=== PATIENT | female | born 1960 | race African-American/Black ===

== ENCOUNTER 2019-04-25 22:21 | Emergency (ER) | payer SELFPAY ==
[~2019-04-25] VITALS: Ht 160 cm; Wt 59.0 kg
[2019-04-26 07:41] VITALS: BP 114/71
== END 2019-04-26 08:20 | disposition home or self-care (01) ==
LOC: ER 22:21
DX: G89.29 Other chronic pain (principal); M54.5 Low back pain; Z99.3 Dependence on wheelchair; Z87.828 Personal history of other (healed) physical injury and trauma
CPT/HCPCS: 99283

== ENCOUNTER 2019-04-26 21:08 | Emergency (ER) | payer SELFPAY | END 2019-04-27 06:55 | disposition left against medical advice (07) | LOC: ER 21:08 | DX: R60.9 Edema, unspecified (principal); Z53.21 Procedure and treatment not carried out due to patient leaving prior to being seen by health care provider ==